=== PATIENT | male | born 2000 | race Caucasian/White ===

== ENCOUNTER 2021-11-27 14:30 | Emergency (ER) | payer OTHER ==
[2021-11-27] MEDS ORDERED: Lidocaine 1% (PF) 30 ML VIAL ONE (15:46)
== END 2021-11-27 16:49 | disposition home or self-care (01) ==
LOC: ERS 14:30
DX: S61.411A Laceration without foreign body of right hand, initial encounter (principal); S61.412A Laceration without foreign body of left hand, initial encounter; E03.9 Hypothyroidism, unspecified; F17.210 Nicotine dependence, cigarettes, uncomplicated
CPT/HCPCS: 12002; J2001